=== PATIENT | male | born 2000 | race Caucasian/White ===

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

== ENCOUNTER 2022-11-23 23:56 | Emergency (ER) | payer OTHER, SELFPAY ==
[2022-11-23 23:59] VITALS: BP 121/55; PULSE 73; RESP 18; TEMP 36.2; O2SAT 97; BMI 23.7
--- NOTE | 2022-11-24 01:51 | ED.HEATRA ---
HPI - Head Injury General Chief complaint: Head Injury Stated complaint: hit his head and bleeding Time Seen by Provider: 11/24/22 01:42 Source: patient Mode of arrival: Ambulatory History of Present Illness HPI Narrative: Patient is a healthy 22-year-old male who presents with head laceration and injury. He reports that he was skipping through a door frame when he hit his head on door frame. He has a laceration frontal region within the hair. He did not initially lose consciousness when he hit his head. Friends noted how much blood there was and how bad it looked lost consciousness when he heard how bad looked it was very brief he is not had nausea or vomiting. Related Data Allergies Allergy/AdvReac Type Severity Reaction Status Date / Time No Known Drug Allergies Allergy Verified 11/23/22 23:59 Review of Systems Review of Systems ROS Unobtainable: All systems reviewed & are unremarkable except as noted in HPI and below Patient History Social History Smoking Status: Never smoker Smoking Status: Never smoker alcohol intake frequency: a few times a week Substance Use Type: does not use Exam Initial Vital Signs Initial Vital Signs: Vital Signs Temperature 97.1 F L 11/23/22 23:59 Pulse Rate 73 11/23/22 23:59 Respiratory Rate 18 11/23/22 23:59 Blood Pressure 121/55 L 11/23/22 23:59 Pulse Oximetry 97 11/23/22 23:59 Oxygen Delivery Method Room Air 11/23/22 23:59 GENERAL: Well-appearing, well-nourished and in no acute distress. CARDIOVASCULAR: peripheral pulses in tact, cap refill <2 sec RESPIRATORY: No respiratory distress, speaks in full sentences without difficulty EXTREMITIES: Normal range of motion, no clubbing or edema. Neurovascularly intact NEUROLOGICAL: Cranial nerves II through XII grossly intact. Normal gait and speech. SKIN: Scalp laceration frontal region 4 cm good skin approximation Procedures Laceration Repair Laceration 1: Site: scalp Description: linear Depth: simple, single layer Local Anesthetic: lidocaine 1% Amount of anesthesia used (mL): 5 Pre-repair: wound explored and irrigated extensively Skin layer closed with: art (#5) Course Orders Ordered: Discontinued Medications Diphtheria/Tetanus/Acell Pertussis (Tet,Diph,Pertuss(Acell),Vac/Pf 0.5 Ml Syringe) 0.5 ml IM .ONCE ONE Stop: 11/24/22 00:08 Last Admin: 11/24/22 02:06 Dose: 0.5 ml Documented By: MAGGY Lidocaine HCl (Lidocaine 1% 20 Ml) 20 ml INJ INTRA-OP ONE Stop: 11/24/22 01:54 Last Admin: 11/24/22 02:09 Dose: 20 ml Documented By: MAGGY Vital Signs Vital signs: Vital Signs - 8 hr 11/23/22 23:59 Temperature 97.1 F L Pulse Rate 73 Respiratory Rate 18 Blood Pressure 121/55 L Pulse Oximetry 97 Oxygen Delivery Method Room Air MDM - Head Injury MDM Narrative Medical decision making narrative: Healthy 22-year-old male presents with scalp laceration. Good skin approximation easily repaired with art. Did have loss of consciousness but thought secondary to be due to vasovagal reaction. At this time there is no depression he is not having any nausea or vomiting. No need for head CT. Discharge Plan Departure Patient Disposition: Home Clinical Impression: Closed head injury, Laceration of scalp Instructions: DI for Laceration Repair -- [place] Activity Restrictions/Additional Instructions: *You have been diagnosed with closed head injury, scalp laceration *What to do: At this time have art removed in about 5-7 days with PCP or walk-in clinic. You may shower and wash her hair. Ice as needed *Continue to take medications as directed Tylenol 1000 mg every 6 hours if needed for [id number] pain Motrin 600 mg every 6 hours if needed for [id number] pain *Follow up with your primary care provider in 2-3 days or call [phone] *Return to ER if you should have increased redness fever or pain persistent vomiting or any new, worsening or concerning symptoms Referrals: Carolina Herrera MD [Primary Care Provider] - Stand Alone Forms: Patient Portal/API
[2022-11-24] MEDS: TET,DIPH,PERTUSS(ACELL),VAC/PF 0.5 ML SYRINGE IM (02:06)
[2022-11-24] MEDS: LIDOCAINE 1% 20 ML INJ (02:09)
== END 2022-11-24 02:12 | disposition home or self-care (01) ==
PROVIDERS: Emergency Provider Emergency Medicine; Family Provider Family Medicine; PCP Family Medicine
DX: S01.01XA Laceration without foreign body of scalp, initial encounter (principal); W22.01XA Walked into wall, initial encounter; Z23 Encounter for immunization
CPT/HCPCS: 12001; 90471; 99283; 90715